=== PATIENT | female | born 1940 | race Caucasian/White ===

== ENCOUNTER 2021-08-28 06:21 | Inpatient (IN) | payer OTHER, BC ==
[2021-08-26 14:43] VITALS: BMI 30.9
[2021-08-28] MEDS ORDERED: BUPIVACAINE HCL/PF 0.5% (5MG/ML) 10 ML VIAL ONE ×2 (07:15→07:29)
[2021-08-28] MEDS ORDERED: MIDAZOLAM HCL 2 MG/2 ML SINGLE DOSE VIAL ONE ×2 (07:15→10:12)
[2021-08-28] MEDS ORDERED: BUPIVACAINE LIPOSOME/PF (EXPAREL) 266 MG/20 ML VIAL ONE (07:15)
[2021-08-28] MEDS ORDERED: SODIUM CHLORIDE 0.9% P/F 10 ML VIAL IJ ONE (07:15)
[2021-08-28] MEDS ORDERED: TRANEXAMIC ACID 1000 MG/10 ML VIAL ONE ×2 (09:37→12:08)
[2021-08-28] MEDS ORDERED: BENZOIN 118 ML SPRAY.PUMP TP ONE (11:17)
[2021-08-28] MEDS ORDERED: ceFAZolin SODIUM 1 GM VIAL ONE ×5 (12:17→23:34)
[2021-08-28] MEDS ORDERED: PROMETHAZINE HCL 25 MG/1 ML VIAL IVPUSH PRN (12:29)
[2021-08-28] MEDS ORDERED: ONDANSETRON 4 MG/2 ML VIAL IVPUSH PRN ×2 (12:29→12:31)
[2021-08-28] MEDS ORDERED: oxyCODONE HCL 5 MG TABLET PO PRN (12:29)
[2021-08-28] MEDS ORDERED: ACETAMINOPHEN 1000 MG/100 ML VIAL IVPB ONE (12:30)
[2021-08-28] MEDS ORDERED: KETOROLAC TROMETHAMINE 30 MG/1 ML VIAL IVPUSH SCH (12:30)
[2021-08-28] MEDS ORDERED: MAGNESIUM HYDROX 2400MG/30ML ORAL SUSPENSION 30 ML CUP PO PRN (12:31)
[2021-08-28] MEDS ORDERED: MAG HYDROX/AL HYDROX/SIMETH 30 ML UNIT-DOSE CUP PO PRN (12:31)
[2021-08-28] MEDS ORDERED: KETOROLAC TROMETHAMINE 30 MG/1 ML VIAL ONE (12:37)
[2021-08-28] MEDS ORDERED: KETOROLAC TROMETHAMINE 30 MG/1 ML VIAL IVPUSH ONE (12:40)
[2021-08-28] MEDS: ACETAMINOPHEN 500 MG TABLET (FP) PO SCH ×2 (12:45→20:04)
[2021-08-28] MEDS ORDERED: LACTATED RINGERS SOLUTION 1,000 ML IV SCH (12:45)
[2021-08-28] MEDS: oxyCODONE HCL 5 MG TABLET PO PRN ×2 (15:49→18:42)
[2021-08-28] MEDS ORDERED: DEXTROSE 5%-WATER 100 ML IVPB ONE ×2 (18:25→18:26)
[2021-08-28] MEDS: CEFAZOLIN 2 GM in DEXTROSE 5%-WATER 100 ML IVPB SCH ×2 (18:40→23:39)
[2021-08-28] MEDS ORDERED: KETOROLAC TROMETHAMINE 30 MG/1 ML VIAL IM ONE (20:11)
[2021-08-28] MEDS: ASPIRIN COATED 81 MG TABLET.EC PO SCH (21:29)
[2021-08-28] MEDS: SENNOSIDES/DOCUSATE COMBO (SENNA PLUS) TABLET (UD) PO SCH (21:29)
[2021-08-28] MEDS: ATORVASTATIN CA 10 MG TABLET (FP) PO SCH (21:29)
[2021-08-29] MEDS: ACETAMINOPHEN 500 MG TABLET (FP) PO SCH ×4 (03:20→21:47)
[2021-08-29] MEDS: oxyCODONE HCL 5 MG TABLET PO PRN ×3 (03:20→19:34)
[2021-08-29] MEDS: CEFAZOLIN 2 GM in DEXTROSE 5%-WATER 100 ML IVPB SCH ×2 (06:46→11:06)
[2021-08-29] MEDS: LEVOTHYROXINE NA 50 MCG TABLET (FP) PO SCH (06:46)
[2021-08-29 08:08] LABS: HEMATOCRIT 31.2 % (32.4-45.2); HEMOGLOBIN 10.4 GM/dl (10.7-15.3); MCH 32.1 pg (25.7-33.7); MCHC 33.3 g/dl (32.0-36.0); MEAN CELL VOLUME 96.3 fl (80-96); MEAN PLT VOLUME 12.6 fl (7.5-11.1); PLATELET COUNT 109 10^3/uL (134-434); RBC 3.24 M/mm3 (3.60-5.2); RDW 13.1 % (11.6-15.6); WHITE BLOOD COUNT 6.4 K/mm3 (4.0-10.8)
[2021-08-29 08:23] LABS: CALCIUM 8.8 mg/dl (8.5-10); CREATININE 1.2 mg/dl (0.55-1.3)
[2021-08-29] MEDS: ASPIRIN COATED 81 MG TABLET.EC PO SCH ×2 (10:00→21:47)
[2021-08-29] MEDS: LISINOPRIL 5 MG TABLET PO SCH (10:00)
[2021-08-29] MEDS: CELECOXIB 200 MG CAPSULE PO SCH (10:00)
[2021-08-29] MEDS: PANTOPRAZOLE 40 MG TABLET PO SCH (10:00)
[2021-08-29] MEDS: SENNOSIDES/DOCUSATE COMBO (SENNA PLUS) TABLET (UD) PO SCH ×2 (10:00→21:47)
[2021-08-29] MEDS ORDERED: DEXTROSE 5%-WATER 100 ML IVPB ONE (10:22)
[2021-08-29] MEDS ORDERED: ceFAZolin SODIUM 1 GM VIAL ONE (10:22)
[2021-08-29] MEDS ORDERED: CEFAZOLIN 2 GM in DEXTROSE 5%-WATER - 50 ML IVPB SCH (10:28)
[2021-08-29] MEDS: ATORVASTATIN CA 10 MG TABLET (FP) PO SCH (21:47)
[2021-08-30] MEDS: oxyCODONE HCL 5 MG TABLET PO PRN ×3 (00:16→09:09)
[2021-08-30] MEDS: ACETAMINOPHEN 500 MG TABLET (FP) PO SCH ×2 (02:02→09:10)
[2021-08-30 06:38] VITALS: BP 118/49; PULSE 85; TEMP 98.4
[2021-08-30] MEDS: LEVOTHYROXINE NA 50 MCG TABLET (FP) PO SCH (07:03)
[2021-08-30 08:06] LABS: HEMATOCRIT 27.9 % (32.4-45.2); HEMOGLOBIN 9.3 GM/dl (10.7-15.3); MCH 31.7 pg (25.7-33.7); MCHC 33.2 g/dl (32.0-36.0); MEAN CELL VOLUME 95.4 fl (80-96); MEAN PLT VOLUME 10.4 fl (7.5-11.1); PLATELET COUNT 71 10^3/uL (134-434); RBC 2.92 M/mm3 (3.60-5.2); RDW 13.3 % (11.6-15.6); WHITE BLOOD COUNT 4.9 K/mm3 (4.0-10.8)
[2021-08-30] MEDS: PANTOPRAZOLE 40 MG TABLET PO SCH (09:10)
[2021-08-30] MEDS: LISINOPRIL 5 MG TABLET PO SCH (09:10)
[2021-08-30] MEDS: SENNOSIDES/DOCUSATE COMBO (SENNA PLUS) TABLET (UD) PO SCH (09:10)
[2021-08-30] MEDS: CELECOXIB 200 MG CAPSULE PO SCH (09:11)
[2021-08-30] MEDS: ASPIRIN COATED 81 MG TABLET.EC PO SCH (09:11)
== END 2021-08-30 16:01 | disposition home or self-care (01) | DRG 470 ==
LOC: FM/S 06:21
PROVIDERS: ADMIT Orthopaedic Surgery Orthopaedic Surgery of the Spine; ATTEND Orthopaedic Surgery Orthopaedic Surgery of the Spine
PROC: 0SRD0J9 Replacement of Left Knee Joint with Synthetic Substitute, Cemented, Open Approach (ICD-10-PCS; principal; 2021-08-28 10:13)
DX: M17.12 Unilateral primary osteoarthritis, left knee (principal); E03.9 Hypothyroidism, unspecified; I10 Essential (primary) hypertension; E78.5 Hyperlipidemia, unspecified; Z85.3 Personal history of malignant neoplasm of breast
CPT/HCPCS: 36415; 73560-TC-LT-FY; 80048; 85027; 88305-TC; 88311-TC; 94010; 94760; 97010-GP; 97116-GP; 97161-GP; C9803; J0131; U0003; U0005

== ENCOUNTER 2021-12-25 06:06 | Inpatient (IN) | payer OTHER, BC ==
[2021-12-19 12:06] VITALS: BMI 32.0
[2021-12-25] MEDS ORDERED: BUPIVACAINE HCL/PF 0.5% (5MG/ML) 10 ML VIAL ONE (06:27)
[2021-12-25] MEDS ORDERED: BUPIVACAINE LIPOSOME/PF (EXPAREL) 266 MG/20 ML VIAL ONE (06:27)
[2021-12-25] MEDS ORDERED: MIDAZOLAM HCL 2 MG/2 ML SINGLE DOSE VIAL ONE (06:27)
[2021-12-25] MEDS ORDERED: SODIUM CHLORIDE 0.9% P/F 10 ML VIAL IJ ONE (06:28)
[2021-12-25] MEDS ORDERED: BENZOIN/ALOE VERA/STORAX/TOLU 30 ML TINCTURE ONE (07:23)
[2021-12-25] MEDS ORDERED: PROPOFOL 20 ML ONE ×7 (07:51→09:46)
[2021-12-25] MEDS ORDERED: TRANEXAMIC ACID 1000 MG/10 ML VIAL ONE ×2 (07:52→08:08)
[2021-12-25] MEDS ORDERED: ceFAZolin SODIUM 1 GM VIAL ONE ×4 (07:52→20:47)
[2021-12-25] MEDS ORDERED: LIDOCAINE HCL/PF 2% SDV 5ML VIAL ONE (07:53)
[2021-12-25] MEDS ORDERED: VANCOMYCIN 1,000 MG VIAL (RESTRICTED TO ID ONLY) ONE (08:08)
[2021-12-25] MEDS ORDERED: MAG HYDROX/AL HYDROX/SIMETH 30 ML UNIT-DOSE CUP PO PRN (11:01)
[2021-12-25] MEDS ORDERED: MAGNESIUM HYDROX 2400MG/30ML ORAL SUSPENSION 30 ML CUP PO PRN (11:01)
[2021-12-25] MEDS ORDERED: ONDANSETRON 4 MG/2 ML VIAL IVPUSH PRN (11:01)
[2021-12-25] MEDS ORDERED: oxyCODONE HCL 5 MG TABLET PO PRN ×2 (11:04→12:34)
[2021-12-25] MEDS ORDERED: HYDROmorphone HCL CARPU-JECT 1 MG/1 ML DISP.SYRIN IVPUSH PRN (11:04)
[2021-12-25] MEDS ORDERED: LACTATED RINGERS SOLUTION 1,000 ML IV SCH (11:15)
[2021-12-25] MEDS: oxyCODONE HCL 5 MG TABLET PO PRN ×4 (12:51→23:26)
[2021-12-25] MEDS: ACETAMINOPHEN 500 MG TABLET (FP) PO SCH ×2 (12:57→18:30)
[2021-12-25] MEDS ORDERED: DEXTROSE 5%-WATER - 50 ML IVPB ONE ×2 (15:32→20:47)
[2021-12-25] MEDS: LISINOPRIL 5 MG TABLET PO SCH (15:36)
[2021-12-25] MEDS: CEFAZOLIN 2 GM in DEXTROSE 5%-WATER - 50 ML IVPB SCH ×2 (15:37→21:46)
[2021-12-25] MEDS: SENNOSIDES/DOCUSATE COMBO (SENNA PLUS) TABLET (UD) PO SCH (21:46)
[2021-12-25] MEDS: ATORVASTATIN CA 10 MG TABLET (FP) PO SCH (21:46)
[2021-12-25] MEDS: ASPIRIN COATED 81 MG TABLET.EC PO SCH (21:46)
[2021-12-25] MEDS ORDERED: oxyCODONE HCL 10 MG SUSTAINED ACTING TABLET PO SCH (22:00)
[2021-12-26] MEDS: ACETAMINOPHEN 500 MG TABLET (FP) PO SCH ×4 (01:00→18:30)
[2021-12-26] MEDS ORDERED: ceFAZolin SODIUM 1 GM VIAL ONE (03:48)
[2021-12-26] MEDS ORDERED: DEXTROSE 5%-WATER - 50 ML IVPB ONE (03:48)
[2021-12-26] MEDS: CEFAZOLIN 2 GM in DEXTROSE 5%-WATER - 50 ML IVPB SCH (03:52)
[2021-12-26] MEDS: oxyCODONE HCL 5 MG TABLET PO PRN ×2 (03:53→22:03)
[2021-12-26] MEDS: LEVOTHYROXINE NA 50 MCG TABLET (FP) PO SCH (06:13)
[2021-12-26 08:15] LABS: CALCIUM 9.1 mg/dl (8.5-10); CREATININE 1.1 mg/dl (0.55-1.3)
[2021-12-26 09:39] LABS: HEMATOCRIT 34.6 % (32.4-45.2); HEMOGLOBIN 11.6 GM/dL (10.7-15.3); MCHC 33.7 g/dl (32.0-36.0); MEAN CELL VOLUME 92.2 fl (80-96); MEAN PLT VOLUME 11.6 fl (7.5-11.1); PLATELET COUNT 116 10^3/uL (134-434); RBC 3.75 M/mm3 (3.60-5.2); RDW 13.9 % (11.6-15.6)
[2021-12-26] MEDS: CELECOXIB 200 MG CAPSULE PO SCH (09:39)
[2021-12-26] MEDS: LISINOPRIL 5 MG TABLET PO SCH (09:39)
[2021-12-26] MEDS: ASPIRIN COATED 81 MG TABLET.EC PO SCH ×2 (09:39→22:01)
[2021-12-26] MEDS: SENNOSIDES/DOCUSATE COMBO (SENNA PLUS) TABLET (UD) PO SCH ×2 (09:39→22:01)
[2021-12-26] MEDS: PANTOPRAZOLE 40 MG TABLET PO SCH (09:39)
[2021-12-26] MEDS: ATORVASTATIN CA 10 MG TABLET (FP) PO SCH (22:01)
[2021-12-27] MEDS: ACETAMINOPHEN 500 MG TABLET (FP) PO SCH ×2 (01:04→06:43)
[2021-12-27] MEDS: LEVOTHYROXINE NA 50 MCG TABLET (FP) PO SCH (06:43)
[2021-12-27 08:59] VITALS: PULSE 100; TEMP 99.2
[2021-12-27] MEDS: LISINOPRIL 5 MG TABLET PO SCH (09:35)
[2021-12-27] MEDS: PANTOPRAZOLE 40 MG TABLET PO SCH (09:35)
[2021-12-27] MEDS: ASPIRIN COATED 81 MG TABLET.EC PO SCH (09:35)
[2021-12-27] MEDS: SENNOSIDES/DOCUSATE COMBO (SENNA PLUS) TABLET (UD) PO SCH (09:36)
[2021-12-27] MEDS: CELECOXIB 200 MG CAPSULE PO SCH (09:36)
[2021-12-27 09:38] VITALS: BP 130/50
[2021-12-27 09:45] LABS: HEMATOCRIT 32.1 % (32.4-45.2); HEMOGLOBIN 10.7 GM/dL (10.7-15.3); MCH 30.6 pg (25.7-33.7); MCHC 33.5 g/dl (32.0-36.0); MEAN CELL VOLUME 91.5 fl (80-96); MEAN PLT VOLUME 11.9 fl (7.5-11.1); PLATELET COUNT 107 10^3/uL (134-434); RBC 3.51 M/mm3 (3.60-5.2); RDW 14.3 % (11.6-15.6); WHITE BLOOD COUNT 5.8 K/mm3 (4.0-10.0)
== END 2021-12-27 12:30 | disposition home or self-care (01) | DRG 470 ==
LOC: FM/S 06:06
PROVIDERS: ADMIT Orthopaedic Surgery Orthopaedic Surgery of the Spine; ATTEND Orthopaedic Surgery Orthopaedic Surgery of the Spine
PROC: 0SRC0J9 Replacement of Right Knee Joint with Synthetic Substitute, Cemented, Open Approach (ICD-10-PCS; principal; 2021-12-25 08:30)
DX: M17.11 Unilateral primary osteoarthritis, right knee (principal); I10 Essential (primary) hypertension; E78.5 Hyperlipidemia, unspecified; E03.9 Hypothyroidism, unspecified; Z85.3 Personal history of malignant neoplasm of breast
CPT/HCPCS: 36415; 73560-TC-RT-FY; 80048; 85027; 88305-TC; 88311-TC; 94010; 94760; 97010-GP; 97116-GP; 97161-GP